=== PATIENT | female | born 1995 | race Caucasian/White ===

== ENCOUNTER 2022-12-02 10:04 | Outpatient (CLI) | payer OTHER ==
--- NOTE | 2022-12-02 16:33 | Ultrasound Report ---
PROCEDURE: Pelvic w/Transvaginal INDICATIONS: OVARIAN CYST TECHNIQUE: Real-time scanning was performed of the pelvic organs, with image documentation. Additional endovagi nal scanning was necessary due to incomplete visualization of the adnexal and endometrial structures by transabdominal scanning. COMPARISON: None. FINDINGS: Uterus: Uterus is anteverted and normal in size at 8.0 x 3.4 x 4.3 cm. The myometrium is homogeneou s. The endometrium measures 5.6 mm in combined thickness. Ovaries: The right ovary measures 2.3 x 2.6 x 2.3 cm, with a calculated ovarian volume of 7.4 cc. T he left ovary measures 2.7 x 1.6 x 1.9 cm, with a calculated ovarian volume of 4.2 cc. The ovaries h ave a normal sonographic appearance. Less than 12 follicles can be seen in each ovary. No adnexal m asses are seen. No cystic lesions measuring greater than 3 cm. Other: No pathologic free abdominal or pelvic fluid. IMPRESSION: 1. No acute ultrasound abnormality of the pelvis. 2. No ovarian cyst is identified. Reviewed by: Michi Herbert on 12/02/2022 4:32 PM PDT Approved by: Michi Herbert on 12/02/2022 4:32 PM PDT Station ID: [id number]
== END 2022-12-02 10:05 | disposition home or self-care (01) ==
LOC: DI 10:04
PROVIDERS: ATTEND Family Medicine
DX: N83.202 Unspecified ovarian cyst, left side (principal)